=== PATIENT | female | born 2000 | race Caucasian/White ===

== ENCOUNTER 2023-08-20 13:04 | Emergency (ER) | payer BC, SELFPAY ==
[2023-08-20 13:10] VITALS: BP 143/89
[2023-08-20 13:31] LABS: % Basophils 0.2 % (0-2); % Eosinophils 0.7 % (0-6); % Immature Granulocytes 0.2 % (0-0.5); % Lymphocytes 24.9 % (20.5-51.1); % Monocytes 7.7 % (1.7-9.3); % Neutrophils 66.3 % (42.2-75.2); Absolute Eosinophils 0.1 10^3/uL (0-0.7); Absolute Lymphocytes 2.2 10^3/uL (1.2-3.4); Absolute Monocytes 0.7 10^3/uL (0.1-0.6); Absolute Neutrophils 5.7 10^3/uL (1.4-6.5); Hematocrit 38.7 % (37.0-47.0); Hemoglobin 13.3 g/dL (12.0-16.0); Mean Corp Hgb Conc. 34.4 g/dL (33.0-37.0); Mean Corpuscular Volume 81.5 fL (81.0-99.0); Mean Platelet Volume 10.8 fL (7.4-10.4); Nucleated Red Blood Cells % 0 %; Platelet Count 354 10^3/uL (130-400); Red Blood Cell Count 4.75 10^6/uL (4.20-5.40); Red Cell Dist. Width 12.2 % (11.5-14.5); White Blood Cell Count 8.7 10^3/uL (4.8-10.8)
[2023-08-20 14:02] LABS: ALT (SGPT) 29 U/L (0-35); AST (SGOT) 33 U/L (14-36); Albumin 4.8 g/dl (3.5-5.0); Alkaline Phosphatase 78 U/L (38-126); Blood Urea Nitrogen 9 mg/dl (7-17); Calcium 10.1 mg/dl (8.4-10.2); Carbon Dioxide 22 mmol/L (22-30); Chloride 103 mmol/L (98-107); Glucose 93 mg/dl (70-99); Lipase 109 U/L (23-300); Potassium 3.8 mmol/L (3.5-5.1); Sodium 137 mmol/L (135-145); Total Bilirubin 0.8 mg/dl (0.2-1.3); Total Protein 8.4 g/dl (6.3-8.2); eGFR > 60.00
[2023-08-20 14:07] LABS: HCG, Serum Qualitative Screen Negative
--- NOTE | 2023-08-20 14:49 | ED.GENMED ---
History of Present Illness
<Destiney Cao PA-C - Last Filed: 08/20/23 19:40>
General
Chief Complaint: Abdominal Pain
Source: patient
Exam Limitations: none
Time Seen by Provider: 08/20/23 14:49
Nursing documentation reviewed up to this point in time: agreed with
Travel History
Have you had any contact with someone who has COVID-19?: No
Do you have any symptoms of coronavirus? Fever > 100 degrees, chills, cough, shortness of breath, sore throat, loss of taste or smell, muscle aches, or headache?: No
History of Present Illness
History of Present Illness:
This is a 22-year-old female with no past medical history is presenting emergency department today with left upper quadrant pain for the past 2 days. 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 Patient
states that she got bad sunburn and for this she started to take ibuprofen multiple times a day for 6 to 7 days in a row. Patient states that after this, he started to develop abdominal pain and vomiting. Patient states that yesterday, there were
some specks of blood in her vomit. Patient states that her pain is gotten a bit better and is now a 3 out of 10 in severity. Patient denies any chest pain, shortness of breath. Patient denies taking any daily medications. Patient denies any
medication allergies. Patient denies any dark and tarry stools. Patient denies any diarrhea or constipation. Patient denies vomiting jase blood.
Review of Systems
<Destiney Cao PA-C - Last Filed: 08/20/23 19:40>
Review of Systems
All Other Systems: ROS reviewed and negative except as documented in HPI and ROS
Phy Exam
<Destiney Cao PA-C - Last Filed: 08/20/23 19:40>
Physical Exam
Physical Exam:
General: Patient is well appearing and in no acute distress; non-toxic
Skin: Warm and dry, no rashes or lesions
Head: Normocephalic, atraumatic
Eyes: Sclera non-icteric. EOMs intact. PERRLA.
Cardiac: Regular rate and rhythm, no murmurs
Peripheral Vascular: No lower extremity edema
Pulm: Normal respiratory effort
Abdomen: No abdominal tenderness to palpation, no palpable masses, normoactive bowel sounds
Neuro: CN II-XII intact, no focal neurologic deficits.
Psychiatric: Appropriate mood and affect.
Course
<Destiney Cao PA-C - Last Filed: 08/20/23 19:40>
Orders/Labs/Results
Orders:
Orders
08/20/23 13:13
Test Result ONCE
08/20/23 13:19
Complete Blood Count/With Diff Urgent
Comprehensive Metabolic Panel Urgent
HCG, Serum Qualitative Screen Urgent
Lipase Urgent
08/20/23 15:07
Pantoprazole [Protonix] 40 mg PO NOW STA
08/20/23 15:29
Mag Hydrox/Al Hydrox/Simeth [Maalox] 30 ml Phenobarb/Hyoscy/Atropine/Scop [] 10 ml PO NOW
08/20/23 15:31
Mag Hydrox/Al Hydrox/Simeth [Maalox] 30 ml .ROUTE .STK-MED ONE
Phenobarb/Hyoscy/Atropine/Scop [] 10 ml .ROUTE .STK-MED ONE
Abnormal Lab Results
08/20/23
13:19
MPV 10.8 H fL
(7.4-10.4)
Absolute Monos (auto) 0.7 H 10^3/uL
(0.1-0.6)
Creatinine 0.5 L mg/dL
(0.6-1.0)
Total Protein 8.4 H g/dl
(6.3-8.2)
08/20/23 13:19
08/20/23 13:19
Vital Signs
Initial and Last Documented VS:
Initial Vital Signs
Temp Pulse Resp BP Pulse Ox
36.8 C 89 16 143/89 100
08/20/23 13:10 08/20/23 13:10 08/20/23 13:10 08/20/23 13:10 08/20/23 13:10
Last Documented Vital Signs
Temp Pulse Resp BP Pulse Ox
36.8 C 89 16 143/89 100
08/20/23 13:10 08/20/23 13:10 08/20/23 13:10 08/20/23 13:10 08/20/23 13:10
<Isaias Chadwick MD - Last Filed: 08/20/23 20:39>
Orders/Labs/Results
Orders:
Orders
08/20/23 13:13
Test Result ONCE
08/20/23 13:19
Complete Blood Count/With Diff Urgent
Comprehensive Metabolic Panel Urgent
HCG, Serum Qualitative Screen Urgent
Lipase Urgent
08/20/23 15:07
Pantoprazole [Protonix] 40 mg PO NOW STA
08/20/23 15:29
Mag Hydrox/Al Hydrox/Simeth [Maalox] 30 ml Phenobarb/Hyoscy/Atropine/Scop [] 10 ml PO NOW
08/20/23 15:31
Mag Hydrox/Al Hydrox/Simeth [Maalox] 30 ml .ROUTE .STK-MED ONE
Phenobarb/Hyoscy/Atropine/Scop [] 10 ml .ROUTE .STK-MED ONE
Abnormal Lab Results
08/20/23
13:19
MPV 10.8 H fL
(7.4-10.4)
Absolute Monos (auto) 0.7 H 10^3/uL
(0.1-0.6)
Creatinine 0.5 L mg/dL
(0.6-1.0)
Total Protein 8.4 H g/dl
(6.3-8.2)
08/20/23 13:19
08/20/23 13:19
Vital Signs
Initial and Last Documented VS:
Initial Vital Signs
Temp Pulse Resp BP Pulse Ox
36.8 C 89 16 143/89 100
08/20/23 13:10 08/20/23 13:10 08/20/23 13:10 08/20/23 13:10 08/20/23 13:10
Last Documented Vital Signs
Temp Pulse Resp BP Pulse Ox
36.8 C 89 16 143/89 100
08/20/23 13:10 08/20/23 13:10 08/20/23 13:10 08/20/23 13:10 08/20/23 13:10
<Destiney Cao PA-C - Last Filed: 08/20/23 19:40>
MDM/Problems Addressed
Differential Diagnosis Includes:
gastritis, duodenitis, Joceline Manjarrez tear, gastroenteritis
MDM/Problems Addressed:
Abdominal pain, blood in vomit
Chronic conditions affecting care:
n/a
Acute Exacerbation and/or Progression of Chronic Illness:
n/a
<PAT Salazar Last Filed: 08/20/23 19:40>
*Pulse Oximetry
Patient hypoxic: no
*Critical Care Note
Total Time (30-74mins, 75-104mins- exclusive of procedures): Not Applicable
Data Reviewed
Review of Other/Old Records Reveals: Records (No previous records to review) and Discharge Summary (No discharge summary to [facility] to review)
Source: patient and records
Further Testing Considered But Not Given:
Consider CAT scan, however patient does not have significant tenderness with palpation
<PAT Salazar Last Filed: 08/20/23 19:40>
Patient Management
Escalation/DeEscalation of care consider admission/obs:
This is a 22-year-old female with no past medical history is presenting emergency department today with left upper quadrant pain for the past 2 days. Patient started experiencing this pain after taking improve multiple times a day for 6 to 7 days
in a row. Patient also had specks of blood in her vomit. History and physical exam consistent with gastritis. No indication for CT imaging at this time considering patient's pain is a 3 out of 10 and does not have significant tenderness on exam.
Patient is well-appearing. Patient was given a dose of PPI and a green grabber here in emergency department. Patient will be sent home with a course of pantoprazole. All patient's questions answered. Reviewed case with my attending Dr. Chadwick who
is in agreement with plan. Patient stable for discharge.
ED Attending Note
<Destiney Cao PA-C - Last Filed: 08/20/23 19:40>
-
Portions of this chart may have been created with voice recognition software.� Occasional wrong word or��sound alike� substitutions may have occurred due to the inherent limitations of voice recognition software.
<Isaias Chadwick MD - Last Filed: 08/20/23 20:39>
ED Attending Note
Patient seen and examined by attending physician: Yes
ED Attending Note:
I have seen and evaluated the patient with a [id number] encounter. I have spoken to the advance practicer provider and involved in the medical history, the physical exam, medical decision making.
Evaluation and management service: agree unless noted differently below.
Results interpretation: agree unless noted differently below.
Focused HPI: 22-year-old female with no significant chronic medical issues presents to the emergency room for evaluation of abdominal discomfort. Patient reports onset of symptoms 2 days ago (Thursday) after a night of heavy drinking on Thursday. She
says pain is in the left upper abdomen. Describes a vague pain associated with some nausea and vomiting. She did notice some small amount of blood in her vomit yesterday. She denies any fevers or chills. She denies any diarrhea or constipation.
She denies any urinary symptoms. No vaginal bleeding or discharge. She does report that she has had a sunburn recently and has been taking ibuprofen regularly for the past week as well.
Physical exam: Awake alert not in distress. Vital signs are normal. Abdomen soft, minimally tender in the left upper abdomen with no peritoneal signs, no abdominal masses.
Medical Decision Makin-year-old female presents for evaluation of mild upper abdominal pain associate with some nausea and vomiting for the past 48 hours�started after a night of drinking and in the setting of recent heavy ibuprofen use due to
severe sunburn. Vitals and exam as above. Her clinical presentation is most consistent with acute gastritis. Very low suspicion for surgical pathology based on abdominal examination and vitals. We did send some basic blood work including a CBC
and a CMP which were unremarkable and her lipase was normal. Her hCG is negative. At this point no clear indication for emergent abdominal imaging. She was treated with green grabber and Protonix with some improvement. Advised to avoid alcohol
and NSAIDs, pursue bland diet and prescribed PPI and Carafate as well as Zofran as needed. Provided referral to GI for outpatient follow-up. She feels very comfortable with this plan. We spoke about return precautions in detail and all questions
were answered.
Discharge Plan
Departure
Patient Disposition: Home (Routine Discharge)
Date of Disposition: 08/20/23
Time of Disposition: 16:05
Patient with high blood pressure during this ER visit?: Yes
Condition: Good
Discharge Problem:
Gastritis
Instructions: Nausea and Vomiting, Adult (DC), Gastritis (DC), BLOOD PRESSURE
Prescriptions:
New
pantoprazole 40 mg tablet,delayed release (DR/EC)
40 mg PO DAILY Qty: 14 0RF
sucralfate [Carafate] 100 mg/mL suspension
10 ml PO ACHS Qty: 1000 0RF
ondansetron 4 mg tablet,disintegrating
4 mg PO TIDPRN PRN (Reason: nausea/vomiting) Qty: 10 0RF
Referrals:
Sharonda Mcneill MD [Active] - Call in 1-3 days for appt
NONE,* [Family Provider] -
Activity Restrictions/Additional Instructions:
Tomorrow, please start taking pantoprazole. Please take one tablet once daily for 2 weeks. Should your symptoms persist, please call the attached number for gastroenterology follow up.
Please refrain from Ibuprofen use for the time being. Please follow up with your primary care provider.
Return to the emergency department should you experience intractable vomiting, and acute worsening of your symptoms, dark tarry stools, abdominal pain radiating to the back or shoulder, chest pain, shortness of breath, or any other concerning signs
or symptoms.
Interventions
Interventions:
*Risk Screen - Suicide Last Done: 08/20/23 15:22
*General Assessment Last Done: 08/20/23 13:10
*Neglect/Abuse Screening Last Done: 08/20/23 15:23
ED- Fall Risk Assessment Last Done: 08/20/23 16:29
*ED COVID-19 Vaccine History Last Done: 08/20/23 13:10
*Nursing Disposition Last Done: 08/20/23 16:29
XD-Fhenjc-Nvjctsviyw Assessment Last Done: 08/20/23 15:18
Discharge Date and Time
Discharge Date/Time: 08/20/23 16:31
Print Language: GEORGIAN
[2023-08-20] MEDS: PROTONIX 40 MG PO (15:18)
[2023-08-20] MEDS: MAALOX 30 PO (15:33)
== END 2023-08-20 16:31 | disposition home or self-care (01) ==
LOC: EMR 13:04
PROVIDERS: Student in an Organized Health Care Education/Training Program; EMERGENCY PHYSICIAN Emergency Medicine
DX: K29.00 Acute gastritis without bleeding (principal); R03.0 Elevated blood-pressure reading, without diagnosis of hypertension
CPT/HCPCS: 99283; 80053; 83690; 84703; 85025